=== PATIENT | female | born 1990 ===

== ENCOUNTER 2019-02-10 18:57 | Emergency (ER) | payer SELFPAY ==
[2019-02-10] MEDS ORDERED: KETOROLAC 60MG/2ML VIAL IM STA (21:41)
[2019-02-10] MEDS ORDERED: ACETAMINOPHEN 500MG TABLET PO ONE (23:00)
[2019-02-10 23:12] VITALS: BP 112/79
== END 2019-02-10 23:15 | disposition home or self-care (01) ==
LOC: ER 18:57
DX: F41.0 Panic disorder [episodic paroxysmal anxiety] (principal); F41.9 Anxiety disorder, unspecified; Z90.49 Acquired absence of other specified parts of digestive tract
CPT/HCPCS: 99284